=== PATIENT | female | born 1965 | race Caucasian/White ===

== ENCOUNTER 2023-01-05 14:14 | Emergency (ER) | payer OTHER ==
[~2023-01-05] VITALS: Ht 165.1 cm; Wt 56.7 kg
[2023-01-05] MEDS ORDERED: ACETAMINOPHEN 500 MG TAB PO ONE (16:20)
[2023-01-05 16:30] VITALS: BP 118/56; TEMP 98.3; O2SAT 99
== END 2023-01-05 16:38 | disposition home or self-care (01) ==
LOC: M ED 14:14
DX: S60.221A Contusion of right hand, initial encounter (principal); W01.0XXA Fall on same level from slipping, tripping and stumbling without subsequent striking against object, initial encounter; Y92.009 Unspecified place in unspecified non-institutional (private) residence as the place of occurrence of the external cause; Y93.01 Activity, walking, marching and hiking; Y99.8 Other external cause status

== ENCOUNTER 2023-01-15 02:30 | Emergency (ER) | payer OTHER ==
[~2023-01-15] VITALS: Ht 165.1 cm; Wt 55.0 kg
[2023-01-15] MEDS ORDERED: methylPREDNISolone 125MG 2ML VIAL As Ordered ONE (02:40)
[2023-01-15] MEDS ORDERED: PANTOPRAZOLE 40MG VIAL IV ONE (02:45)
[2023-01-15 02:53] VITALS: TEMP 98.1
[2023-01-15 06:17] VITALS: BP 104/50; O2SAT 97
[2023-01-15] MEDS ORDERED: DEXA2TA PO (06:43)
== END 2023-01-15 06:55 | disposition home or self-care (01) ==
LOC: M ED 02:30
DX: K14.8 Other diseases of tongue (principal); N18.6 End stage renal disease; F32.A Depression, unspecified; Z88.6 Allergy status to analgesic agent; Z88.4 Allergy status to anesthetic agent
CPT/HCPCS: 96374; 99284; C9113